=== PATIENT | female | born 1980 | race Caucasian/White ===

== ENCOUNTER 2017-05-23 10:43 | Emergency (ER) | payer OTHER ==
[2017-05-23] MEDS ORDERED: IV NORMAL SALINE 1,000ML 1,000 ML IV SCH (11:29)
[2017-05-23 11:52] LABS: BASO # 0.1 x10^3/uL (0.0-0.2); BASO % 1 % (0-3); EOS # 0.4 x10^3/uL (0.0-0.7); EOS % 4 % (0-3); HEMATOCRIT 40.6 % (36.0-47.0); HEMOGLOBIN 13.7 g/dL (12.0-15.5); LYMPH # 1.8 x10^3/uL (1.0-4.8); LYMPH % 20 % (24-48); MEAN CORPUSCULAR HEMOGLOBIN 31 pg (25-35); MEAN CORPUSCULAR HGB CONC 34 g/dL (31-37); MEAN CORPUSCULAR VOLUME 91 fL (79-100); MONO # 0.6 x10^3/uL (0.0-1.1); MONO % 6 % (0-9); NEUT # 6.5 x10^3uL (1.8-7.7); NEUT % 69 % (31-73); PLATELET COUNT 390 x10^3/uL (140-400); RED BLOOD COUNT 4.47 x10^6/uL (3.50-5.40); RED CELL DISTRIBUTION WIDTH 12.7 % (11.5-14.5); WHITE BLOOD COUNT 9.4 x10^3/uL (4.0-11.0)
[2017-05-23 11:55] LABS: BACTERIA,URINE FEW /HPF (0-FEW); BILIRUBIN,URINE NEG (NEG); CLARITY,URINE CLEAR; COLOR,URINE STRAW; GLUCOSE,URINE NEG (NEG); NITRITE,URINE NEG (NEG); RBC,URINE 0 /HPF (0-2); SQUAMOUS EPITHELIAL CELL,UR FEW /LPF; UROBILINOGEN,URINE 0.2 mg/dL (0.2 mg/dL); WBC,URINE RARE /HPF (0-4)
[2017-05-23] MEDS ORDERED: ONDANSETRON PF 4 MG/2 ML VIAL. IV ONE (12:00)
--- NOTE | 2017-05-23 12:06 | ED.ADGEN ---
Past History Past Medical History: Other Past Surgical History: Tonsillectomy, Other Alcohol Use: None Drug Use: None Adult General HPI HPI Patient is a 36-year-old woman, , with history of 8 previous miscarriages , who received implantation in March, who presents the emergency department with a complaint of nausea and vomiting that began this morning. Patient states that she's been experiencing nausea persistently throughout her , but this morning awoke with severe nausea and persistent vomiting, states she is unable to tolerate food or fluid since early this morning. She states she's experienced feeling extreme nauseous this time. Denies abdominal pain, any urinary complaints, any focal weakness, numbness, tingling, chest pain, bleeding from the vagina, discharge or drainage. Patient states that she discontinued her fertility medications early this week, as directed by her OB/ [employer], and when she contacted her CLINICAL DOCUMENTATION NURSE's office this morning was told this may be contributing to her symptoms. Patient denies any sick contacts or ingestions , no bad food exposures. Denies any similar symptoms previously. She states that she does have Zofran at home but did not take today as it causes constipation. Suture last bowel movement was yesterday and was normal. Review of Systems Review of Systems Constitutional: Denies fever or chills [] Eyes: Denies change in visual acuity, redness, or eye pain [] HENT: Denies nasal congestion or sore throat [] Respiratory: Denies cough or shortness of breath [] Cardiovascular: No additional information not addressed in HPI [] GI: Denies abdominal pain, nausea, vomiting, no bloody stools or diarrhea. Constipation. : Denies dysuria or hematuria [] Musculoskeletal: Denies back pain or joint pain [] Integument: Denies rash or skin lesions [] Neurologic: Denies headache, focal weakness or sensory changes [] Endocrine: Denies polyuria or polydipsia [] Current Medications Current Medications Current Medications Medications (Trade) Dose Ordered Sig/Nelson Start Time Stop Time Status Last Admin Dose Admin Cephalexin HCl (Keflex) 500 mg 1X ONCE 05/23/17 13:00 05/23/17 13:01 DC 05/23/17 12:54 500 MG Ondansetron HCl (Zofran) 4 mg 1X ONCE 05/23/17 12:00 05/23/17 12:01 DC 05/23/17 11:45 4 MG Sodium Chloride 1,000 ml @ 1,000 mls/hr Q1H 05/23/17 11:29 05/23/17 12:28 DC 05/23/17 11:29 1,000 MLS/HR Allergies Allergies Allergies Coded Allergies Type Severity Reaction Last Updated Verified No Known Drug Allergies 05/23/17 No Physical Exam Physical Exam Constitutional: Well developed, well nourished, no acute distress, non-toxic appearance. [] HENT: Normocephalic, atraumatic, bilateral external ears normal, oropharynx moist, no oral exudates, nose normal. [] Eyes: PERRLA, EOMI, conjunctiva normal, no discharge. [] Neck: Normal range of motion, no tenderness, supple, no stridor. [] Cardiovascular:Heart rate regular rhythm, no murmur, S1, S2, rubs or gallops. [] Lungs & Thorax: Bilateral breath sounds clear to auscultation, no wheezing, rhonchi, rales. No chest or crepitus or tenderness. [] Abdomen: Bowel sounds normal, soft, no tenderness, no rebound, rigidity, no guarding, no masses, no pulsatile masses. [] Skin: Warm, dry, no erythema, no rash. [] Back: No tenderness, no CVA tenderness. [] Extremities: No tenderness, no cyanosis, no clubbing, ROM intact, no edema. [] Neurologic: Alert and oriented X 3, normal motor function, normal sensory function, no focal deficits noted. [] Psychologic: Affect normal, judgement normal, mood normal. [] heart tones in the 150s noted on bedside Doppler. Current Patient Data Vital Signs Vital Signs Date Time Temp Pulse Resp B/P (MAP) Pulse Ox O2 Delivery O2 Flow Rate FiO2 05/23/17 12:57 87 14 114/70 (85) 100 Room Air 05/23/17 10:43 98.4 Lab Results Laboratory Tests Test 05/23/17 11:30 05/23/17 11:42 05/23/17 12:08 Urine Collection Type Void Urine Color Straw Urine Clarity Clear Urine pH 7.0 Urine Specific [place] 1.010 Urine Protein Neg (NEG-TRACE) Urine Glucose (UA) Neg mg/dL (NEG) Urine Ketones (Stick) Neg mg/dL (NEG) Urine Blood Neg (NEG) Urine Nitrite Neg (NEG) Urine Bilirubin Neg (NEG) Urine Urobilinogen Dipstick 0.2 mg/dL (0.2 mg/dL) Urine Leukocyte Esterase Neg (NEG) Urine RBC 0 /HPF (0-2) Urine WBC Rare /HPF (0-4) Urine Squamous Epithelial Cells Few /LPF Urine Bacteria Few /HPF (0-FEW) White Blood Count 9.4 x10^3/uL (4.0-11.0) Red Blood Count 4.47 x10^6/uL (3.50-5.40) Hemoglobin 13.7 g/dL (12.0-15.5) Hematocrit 40.6 % (36.0-47.0) Mean Corpuscular Volume 91 fL (79-100) Mean Corpuscular Hemoglobin 31 pg (25-35) Mean Corpuscular Hemoglobin Concent 34 g/dL (31-37) Red Cell Distribution Width 12.7 % (11.5-14.5) Platelet Count 390 x10^3/uL (140-400) Neutrophils (%) (Auto) 69 % (31-73) Lymphocytes (%) (Auto) 20 % (24-48) L Monocytes (%) (Auto) 6 % (0-9) Eosinophils (%) (Auto) 4 % (0-3) H Basophils (%) (Auto) 1 % (0-3) Neutrophils # (Auto) 6.5 x10^3uL (1.8-7.7) Lymphocytes # (Auto) 1.8 x10^3/uL (1.0-4.8) Monocytes # (Auto) 0.6 x10^3/uL (0.0-1.1) Eosinophils # (Auto) 0.4 x10^3/uL (0.0-0.7) Basophils # (Auto) 0.1 x10^3/uL (0.0-0.2) Sodium Level 144 mmol/L (136-145) Potassium Level 4.2 mmol/L (3.5-5.1) Chloride Level 110 mmol/L (98-107) H Carbon Dioxide Level 26 mmol/L (21-32) Anion Gap 8 (6-14) Blood Urea Nitrogen 8 mg/dL (7-20) Creatinine 0.6 mg/dL (0.6-1.0) Estimated GFR (Cockcroft-Gault) 112.5 BUN/Creatinine Ratio 13 (6-20) Glucose Level 77 mg/dL (70-99) Calcium Level 7.7 mg/dL (8.5-10.1) L Total Bilirubin 0.2 mg/dL (0.2-1.0) Aspartate Amino Transferase (AST) 16 U/L (15-37) Alanine Aminotransferase (ALT) 20 U/L (14-59) Alkaline Phosphatase 62 U/L (46-116) Total Protein 6.0 g/dL (6.4-8.2) L Albumin 2.7 g/dL (3.4-5.0) L Albumin/Globulin Ratio 0.8 (1.0-1.7) L Lipase 139 U/L (73-393) EKG EKG Not indicated. [] Radiology/Procedures Radiology/Procedures Not indicated. [] Course & Med Decision Making Course & Med Decision Making Pertinent Labs and Imaging studies reviewed. (See chart for details) [] Final Impression Final Impression Patient received IV fluids, antiemetics, in the emergency department with good effect. Laboratory studies and urinalysis obtained, laboratory studies not reveal any acutely concerning findings, urinalysis revealed bacteria, negative for nitrates. I did discuss findings with patient, who is feeling better after receiving interventions as stated, is tolerating oral fluids in the ED. Patient also tolerated first dose of Keflex, discussed the patient we will treat bacteriuria in due to risk of complications, cultures are pending, patient states she does have history of yeast infections with antibiotics, discussed with her that Diflucan treatment yeast infection is contraindicated in early . Instructed her to speak with her CLINICAL DOCUMENTATION NURSE regarding continuing the antibiotic coverage once cultures are obtained, which her OB can obtain from our laboratory, and potential treatment if a yeast infection does develop. Patient voiced understanding and agreement. She does have vitamin B6 and has Unisom as well, was given additional prescriptions for these medications to be used as instructed as needed for morning sickness, along with her home Zofran. Patient was also given perception for Colace, instructed to take 2-4 tablets daily with plenty of water to help treat constipation. Dietary instructions also discussed. Patient voiced understanding and agreement with instructions, precautions, and plan as stated. Discharged home with prescription , plan and precautions with significant other as above. Problems: Lori Disclaimer Dragon Disclaimer This electronic medical record was generated, in whole or in part, using a voice recognition dictation system. Departure: Impression: Primary Impression: Nausea and vomiting during Additional Impression: Bacteriuria during Disposition: 01 HOME, SELF-CARE Condition: IMPROVED Scripts Cephalexin (KEFLEX) 500 Mg Capsule 1 CAP PO BID, #14 CAP Prov: ELMO ROSADO DO 05/23/17 Docusate Sodium (COLACE) 100 Mg Capsule 2 CAP PO PRN BID Y for CONSTIPATION, #30 CAP Prov: ELMO ROSADO DO 05/23/17 Doxylamine Succinate (Unisom) 25 Mg Tablet 25 MG PO PRN QHS Y for NAUSEA, #20 TAB Prov: ELMO ROSADO DO 05/23/17 Pyridoxine Hcl (VITAMIN B-6) 25 Mg Tablet 25 MG PO PRN TID Y for NAUSEA, #30 TAB Prov: ELMO ROSADO DO 05/23/17 ELMO ROSADO DO May 23, 2017 12:06
[2017-05-23 12:35] LABS: ALBUMIN 2.7 g/dL (3.4-5.0); ALBUMIN/GLOBULIN RATIO 0.8 (1.0-1.7); CALCIUM 7.7 mg/dL (8.5-10.1); CREATININE 0.6 mg/dL (0.6-1.0); GFR 112.5; POTASSIUM 4.2 mmol/L (3.5-5.1); TOTAL BILIRUBIN 0.2 mg/dL (0.2-1.0)
[2017-05-23] MEDS ORDERED: DOXY25TA38 PO (12:55)
[2017-05-23] MEDS ORDERED: DOCU-109 PO (12:55)
[2017-05-23] MEDS ORDERED: PYRI25TA2 PO (12:55)
[2017-05-23] MEDS ORDERED: CEPHALEXIN 250 MG CAPSULE PO ONE (13:00)
[2017-05-23] MEDS ORDERED: CEPH-264 PO (13:16)
[2017-05-23 13:20] VITALS: BP 116/81
== END 2017-05-23 13:20 | disposition home or self-care (01) ==
LOC: ER 10:43
DX: O21.9 Vomiting of pregnancy, unspecified (principal); O23.91 Unspecified genitourinary tract infection in pregnancy, first trimester; R82.71 Bacteriuria; Z3A.00 Weeks of gestation of pregnancy not specified
CPT/HCPCS: 36415; 80053; 81001; 83690; 85025; 96361; 96374; 99285; J2405; J7030

== ENCOUNTER → 2018-06-22 | Outpatient (CLI) | payer OTHER ==
[~2018-06-22] MED LIST: CEPH-264 PO; DOCU-109 PO; DOXY25TA49 PO; PYRI25TA2 PO
--- NOTE | 2018-06-22 12:31 | RAD ---
EXAM: Lumbar spine, 5 views. HISTORY: pain. COMPARISON: None. FINDINGS: 5 views of the lumbar spine are obtained. There are 6 nonrib-bearing lumbar vertebral segments, a normal variant. There is no listhesis. The vertebral bodies are normal in height and the disc spaces are preserved. IMPRESSION: No acute osseous finding. Electronically signed by: Tereza Carter MD (06/22/2018 12:28 PM) [facility]
== END | disposition home or self-care (01) ==
LOC: PMG 11:26
PROVIDERS: ATTEND Physician Assistant Medical
DX: M54.9 Dorsalgia, unspecified (principal); N93.8 Other specified abnormal uterine and vaginal bleeding
CPT/HCPCS: 72110

== ENCOUNTER → 2019-07-14 | Outpatient (CLI) | payer OTHER ==
--- NOTE | 2019-07-14 16:55 | RAD ---
THYROID ULTRASOUND: 07/14/2019 3:00 PM Indication: 38 years old Female. Enlarged thyroid. Comparison: None. TECHNIQUE: Sonographic evaluation of the thyroid gland was performed utilizing grayscale and color Doppler imaging. FINDINGS: Right lobe: Normal in morphology and echotexture without significant hyperemia. Size: 5.0 x 0.9 x 1.6 cm Nodules: 0.4 cm hypoechoic nodule is partly solid and partly cystic, circumscribed and wider than it is tall without suspicious internal echogenic foci. This finding is benign appearing. Left lobe: Normal in morphology and echotexture without significant hyperemia. Size: 4.6 x 1.1 x 1.5 cm Nodules: Circumscribed hypoechoic partly cystic, partly solid nodule is identified in the inferior left thyroid lobe measuring 0.7 x 0.5 x 0.7 cm. This finding is wider than it is tall without suspicious internal echogenic foci. This finding is mildly suspicious (TR 3). Isthmus: Unremarkable. IMPRESSION: At least 2 thyroid nodules are visualized, none of which qualified for fine-needle aspiration or serial ultrasound by TIRADS criteria. Electronically signed by: Princess Rivera MD (07/14/2019 4:51 PM) [facility]
== END | disposition home or self-care (01) ==
LOC: US 14:39
PROVIDERS: ATTEND Physician Assistant Medical
DX: E04.2 Nontoxic multinodular goiter (principal)
CPT/HCPCS: 76536

== ENCOUNTER → 2019-09-17 | Outpatient (CLI) | payer OTHER ==
--- NOTE | 2019-09-17 11:36 | RAD ---
Right upper quadrant abdominal ultrasound without comparison for right upper quadrant pain. TECHNIQUE AND FINDINGS: Real-time grayscale and color Doppler evaluation of the right upper quadrant abdominal organs is performed. The liver is normal in appearance, and measures 16.5 cm. No intrahepatic ductal dilatation. Common bile duct is normal, measuring 4 mm in diameter. Gallbladder is fluid distended and free of any shadowing stones or sludge. Within the dependent portion of the gallbladder near the neck, there is a nonmobile nonshadowing 4 mm lobular echogenic focus which likely represents a gallbladder polyp. Visualized portions the pancreas are grossly unremarkable, though the distal body and tail are poorly seen. The right kidney measures 10.2 cm and is grossly unremarkable as well with no hydronephrosis or perinephric fluid. The IVC is patent. IMPRESSION: 1. No evidence of acute cholecystitis. 2. 4 mm gallbladder polyp. Follow-up according to risk factors. Electronically signed by: Jomar Arevalo MD (09/17/2019 11:33 AM) [id number]
== END | disposition home or self-care (01) ==
LOC: US 08:59
PROVIDERS: ATTEND Physician Assistant Medical
DX: K82.4 Cholesterolosis of gallbladder (principal)
CPT/HCPCS: 76705

== ENCOUNTER → 2020-02-15 | Outpatient (CLI) | payer OTHER | END | disposition home or self-care (01) | LOC: LAB 11:41 | PROVIDERS: ATTEND Psychiatry & Neurology Neurology with Special Qualifications in Child Neurology | DX: M79.2 Neuralgia and neuritis, unspecified (principal) | CPT/HCPCS: 82607; 84443 ==

== ENCOUNTER → 2020-02-15 | Outpatient (CLI) | payer OTHER ==
--- NOTE | 2020-02-15 10:47 | RAD ---
EXAM: Bilateral wrists, 3 views. HISTORY: Pain. COMPARISON: None. FINDINGS: 3 views of both wrists are obtained. There is no fracture, dislocation or subluxation. The alignment and joint spaces are unremarkable. IMPRESSION: No acute osseous finding. Electronically signed by: Tereza Carter MD (02/15/2020 10:44 AM) [id number]
== END | disposition home or self-care (01) ==
LOC: RAD 10:22
PROVIDERS: ATTEND Physician Assistant
DX: M25.531 Pain in right wrist (principal); M25.532 Pain in left wrist
CPT/HCPCS: 73110

== ENCOUNTER → 2020-03-15 | Outpatient (CLI) | payer OTHER ==
--- NOTE | 2020-03-15 10:17 | RAD ---
PROCEDURE: SHOULDER BILAT 2+V STUDY DATE: 03/15/2020 CLINICAL INDICATION / HISTORY: Reason: PAIN IN BILAT SHOULDERS / Spl. Instructions: / History: . TECHNIQUE: AP internal and external rotation views with a Y- view were obtained of the right and left shoulders. COMPARISON: No relevant comparisons. FINDINGS: No fracture, dislocation or bone destruction is identified. There are no degenerative changes at the left AC joint. No calcifications are seen in relation to the rotator cuff insertion. IMPRESSION: No acute osseous abnormality in either shoulder joint Electronically signed by: Jv Rader MD (03/15/2020 10:14 AM) [id number]
== END | disposition home or self-care (01) ==
LOC: DXRAD 09:39
PROVIDERS: ATTEND Physician Assistant
DX: M25.512 Pain in left shoulder (principal); M25.511 Pain in right shoulder
CPT/HCPCS: 73030

== ENCOUNTER → 2021-01-19 | Outpatient (CLI) | payer OTHER ==
--- NOTE | 2021-01-19 16:32 | RAD ---
XR SHOULDER_RIGHT 2+ VIEWS History: Reason: RT SHOULDER PAIN / Spl. Instructions: / History: Technique: 3 views right shoulder. Comparison: None. Findings: Normal alignment. No fracture. Impression: 1. No acute osseous abnormality. Electronically signed by: Emmanuel Medina DO (01/19/2021 4:30 PM) [id number]
== END ==
LOC: DXRAD 10:12
PROVIDERS: ATTEND Physician Assistant
DX: M25.511 Pain in right shoulder (principal)
CPT/HCPCS: 73030

== ENCOUNTER → 2021-05-02 | Outpatient (CLI) | payer OTHER ==
--- NOTE | 2021-05-02 12:22 | RAD ---
PQRS Compliance Statement: One or more of the following individualized dose reduction techniques were utilized for this examinat ion: 1. Automated exposure control 2. Adjustment of the mA and/or kV according to patient size 3. Use of iterative reconstruction technique CT abdomen/pelvis without contrast 05/02/2021 9:20 AM INDICATION: Abdominal pain with history of hysterectomy September 2020. COMPARISON: CT abdomen/pelvis 09/30/2019 TECHNIQUE: Multiple axial CT images of the abdomen and pelvis were obtained without intravenous contr ast. Coronal and sagittal reformats are provided. FINDINGS: Visualized portions of the lung bases are clear. Heart size is within normal limits. Evaluation of the solid abdominal viscera is limited by lack of intravenous contrast. 6 mm hypodensity identified within the lateral segment left hepatic lobe (series 2, image 24), indete rminate. Spleen, bilateral adrenal glands, and pancreas are normal in appearance. Gallbladder is pres ent without adjacent inflammatory changes. The abdominal aorta is normal in course and caliber. There are no pathologically enlarged lymph nodes in the abdomen and pelvis. There is no abdominal free fluid. There is no free intraperitoneal air. The kidneys are relatively symmetric in appearance. There is no suspicious renal mass within the limi tations of a noncontrast examination. There is no hydronephrosis. There are no calculi within the kid neys, ureters or urinary bladder. There is a cystic area adjacent to the right vaginal cuff measuring 3.2 x 2.5 cm. Small and large bow el are normal in caliber. There is no evidence for bowel obstruction. There are no pericolonic inflam matory changes. A normal, nondilated appendix is visualized without adjacent inflammatory changes. Hy sterectomy changes. Bladder is within normal limits given degree of distention. No suspicious osseous abnormality is identified. IMPRESSION: There is a cystic area adjacent to the right vaginal cuff measuring 3.2 x 2.5 cm. This finding is of indeterminate etiology and could represent the right ovary. Correlate with any history of oophorectom y. If the ovaries have been removed, further characterization with pelvic ultrasound or pelvic MRI co uld be of benefit for further evaluation as this finding remains indeterminate. There is 6 mm hypodensity in the lateral segment left hepatic lobe is indeterminate, however favors b enign etiology such as a cyst or hemangioma in the absence of underlying malignancy. Electronically signed by: Princess Rivera MD (05/02/2021 12:20 PM) [facility]
== END ==
LOC: CT 09:15
PROVIDERS: ATTEND Physician Assistant Medical
DX: R10.9 Unspecified abdominal pain (principal)
CPT/HCPCS: 74176